=== PATIENT | male | born 1970 | race Caucasian/White ===

== ENCOUNTER 2016-12-18 21:02 | Inpatient (IN) | payer OTHER ==
[~2016-12-18] VITALS: Ht 177.8 cm; Wt 102.1 kg
--- NOTE | ~2016-12-18 | HC ---
[facility] [place] [address] CONSULTATION Name: VINCENZOSANCHEZ GNI Room #: 449-I ADM IN M.R.#: [id number] Admission: 12/18/16 Attend Phys: Gin Stafford DO Discharge: Date of : 66 Report #: [id number] THIS REPORT FOR: //name// CC: Gin Brannon DATE OF SERVICE: 12/20/2016 ATTENDING PHYSICIAN: Dr. Gomez. REASON FOR CONSULTATION: Scrotal cellulitis, perineal drainage. HISTORY OF PRESENT ILLNESS: The patient is a 46-year-old white man who was well until Sunday when he started developed pain and swelling of the scrotum and visited with a local emergency room, prescribed Bactrim and he did not improve. He is admitted to [facility] with fevers and a diagnosis of scrotal cellulitis with negative CT scan. Scrotal ultrasound for detection of pus pockets. He is on treatment with meropenem and Cleocin. Though he has defervesced, he continues to have significant enlarged scrotum with some pain. The patient's nurse reports the patient is having some drainage from the peritoneal area and will culture this area. The patient tells me he is not better. He is still having significant scrotal swelling and pain and pressure off and on persistently. DRUG ALLERGIES: PENICILLIN (the patient's father and mother had penicillin allergy). The patient has never experienced a reaction to penicillin, since he had not used this drug. MEDICATIONS: The patient is on treatment with meropenem 1 gram IV every 8 hours, Cleocin 600 mg IV every 8 hours, docosahexaenoic acid 3000 mg daily, enoxaparin 40 mg subQ at bedtime, famotidine 20 mg at bedtime, oxycodone/acetaminophen 1 tablet q. 4h. p.r.n., atorvastatin 40 mg daily, nicotine 1 mg patch daily, acetaminophen p.r.n., ondansetron p.r.n. PAST MEDICAL HISTORY: Hypertension. History of atrial fibrillation, requiring ablation. Bilateral inguinal hernia repair many years ago. Dyslipidemia. SOCIAL HISTORY: Single, construction work. . No significant alcohol. REVIEW OF SYSTEMS: Noncontributory besides what has been stated above. PHYSICAL EXAMINATION: GENERAL: Overweight white man, not toxic looking. VITAL SIGNS: Temperature 103.3 yesterday and down to 100.1 today, pulse 95, respirations 20, BP 143/83. HEENMT: Head normocephalic, atraumatic. Pupils reactive. Mouth: No thrush or [facility] [address] [place] [address] CONSULTATION Name: SANCHEZ LOYA GIN Room #: 449-I [facility] IN ..#: [id number] Admission: 12/18/16 Attend Phys: Gin Stafford DO Discharge: Date of : 66 Report #: [id number] hairy leukoplakia. NECK: Supple. LUNGS: Clear to auscultation. HEART: S1, S2. No gallop or murmur. ABDOMEN: Obese, soft, no masses or megaly, no abnormal tenderness. GENITALIA: The scrotum very large and reddened with thickened raised spermatic cord. I detect no obvious masses. I could not feel the testicles because of swelling. On the left lateral decubitus, the patient has perineal sinus tract on the right side and it is draining clear fluid. We will take him culture of this lesion. RECTAL: Deferred. EXTREMITIES: There is some pretibial edema, right leg. No calf tenderness, question mild effusion of right knee joint. LABORATORY DATA: The patient had the following abnormals, sodium 133, 132, BUN 21, creatinine 1.7 on admission, down to normal now. Glucose 114, calcium 8.4, possible reflecting hypoalbuminemia. On admission, the white blood cell count is 18,600, hemoglobin 13.1 g/dL and platelets 105,000 and white blood cell count differential revealed 80% neutrophils. Repeat CBC today revealed the white blood cell count has come down to 15,700, hemoglobin 12.5 g/dL and platelets remain decreased at 104,000. Blood cultures negative. RADIOLOGY EVALUATION: CT scan of the pelvic area revealed significant scrotal swelling and edema of the cord and some reacted lymphadenitis. No obvious abscess. ASSESSMENT: 1. Scrotal cellulitis and sinus tract, right perineal area. 2. Leukocytosis, improving. 3. Fever,? improving. 4. Thrombocytopenia, question etiology. 5. "PENICILLIN allergy" on account of family history. 6. Right pretibial edema, question etiology. 7. Right knee pain. 8. Hypertension. 9. History of atrial fibrillation status post ablation. 10. Inguinal hernia repair. SUGGESTIONS: Recommend culture sinus tract. MRSA screen nasal. Continue meropenem. Zyvox 600 mg IV every 12 hours. Ultrasound venous circulation of the right leg. Urology consultation. Serum uric acid. We will discuss situation with Dr. Gomez [facility] [address] [place] [address] CONSULTATION Name: SANCHEZ LOYA Room #: 449-I ADM IN M.R.#: [id number] Admission: 12/18/16 Attend Phys: Gin Stafford DO Discharge: Date of : 66 Report #: [id number] Gomez, thank you for requesting my suggestions. <ELECTRONICALLY SIGNED> By: Jonathon Lim MD 12/21/16 1005 1316 0151 Jonathon Lim MD /nt
--- NOTE | ~2016-12-18 | EKG ---
[address] [address] ELECTROCARDIOGRAM REPORT Name: SANCHEZ LOYA Room #: 544-P ADM IN M.R.#: [id number] Admission: 12/18/16 Attend Phys: Sekou Stafford DO Discharge: Date of : 66 Report #: [id number] THIS REPORT FOR: //name// [facility] Test Date: 2016-12-20 Test Time: 17:50:02 Pat Name: SANCHEZ LOYA Department: Room: 544 P Gender: M [employer]: Alexa HAYDEN : 1970 Requested By: Thanh Mendez Order Number: [id number] MD: Gene Lim Measurements Intervals [place] Rate: 141 P: 140 SD: 81 QRS: 39 QRSD: 99 T: -10 QT: 327 QTc: 501 Interpretive Statements Atrial flutter, typical with RVR. No previous ECG available for comparison Electronically Signed On 12-20-2016 18:52:37 CDT by Gene Lim [email or web address] <ELECTRONICALLY SIGNED> By: Gene Lim MD 12/20/16 5922 D: 05/1749 49 Gene Lim MD /HILDA
--- NOTE | ~2016-12-18 | 2DMMODE ---
[facility] [employer] [address] 2 D/M-MODE ECHOCARDIOGRAM Name: SANCHEZ LOYA Room #: 449-I ADM IN ..#: [id number] Admission: 12/18/16 Attend Phys: Gin Stafford, Discharge: Date of : 66 Date of Service: 12/21/16 1238 Report #: [id number] THIS REPORT FOR: //name// APPROVED REPORT Study performed: 12/21/2016 09:04:34 EXAM: Comprehensive 2D, Doppler, and color-flow Echocardiogram Patient Location: Bedside Room #: [facility] Status: routine Other Information Study Quality: Adequate Indications Atrial Fibrillation Hypertension/HDD 2D Dimensions RVDd: 42.81 mm LVEF(%): 61.87 (>50%) IVSd: 10.23 (7-11mm) LVOT Diam: 22.43 (18-24mm) LVDd: 53.28 mm PWd: 10.49 (7-11mm) Ascending Ao: 36.96 (22-36mm) LVDs: 35.39 (25-40mm) Aortic Root: 35.25 mm Zhang's LVEF: 61.87 % Volumes Left Atrial Volume (Systole) Single Plane 4CH: 84.44 mL Aortic Valve AoV Peak Marvin.: 1.64 m/s AO Peak Gr.: 10.90 mmHg LVOT Max P.97 mmHg LVOT Max V: 1.41 m/s GABO Vmax: 3.39 cm2 Mitral Valve MV Decel. Time: 153.90 ms MV E Max Marvin.: 1.32 m/s IVRT: 83.04 ms Pulmonary Valve PV Peak Marvin.: 1.14 m/s PV Peak Gr.: 5.23 mmHg [facility] [address] [address] 2 D/M-MODE ECHOCARDIOGRAM Name: VINCENZOSANCHEZ GREENFIELD Room #: 449-I [facility] IN [facility].#: [id number] Admission: 12/18/16 Attend Phys: Gin Stafford, Discharge: Date of : 66 Date of Service: 12/21/16 1238 Report #: [id number] Tricuspid Valve TR Peak Marvin.: 2.16 m/s RAP Estimate: 5.00 mmHg TR Peak Gr.: 18.92 mmHg RVSP: 24.00 mmHg Left Ventricle The left ventricle is normal size. There is normal LV segmental wall motion. Mild concentric left ventricular hypertrophy. The left ventricular systolic function is normal. The left ventricular ejection fraction is within the normal range. LVEF is 55-60%. This study is not technically sufficient to allow evaluation of the LV diastolic function due to atrial fibrillation. Right Ventricle The right ventricle is normal size. The right ventricular systolic function is normal. Atria Left atrium is dilated. Right atrium is dilated. Aortic Valve The aortic valve is normal in structure. No aortic regurgitation is present. There is no aortic valvular stenosis. Mitral Valve The mitral valve is normal in structure. Trace mitral regurgitation. No evidence of mitral valve stenosis. Tricuspid Valve The tricuspid valve is normal in structure. There is trace tricuspid regurgitation. The right atrial pressure is estimated at 5 mmHg with an estimated PAP 24 mmHg. Pulmonic Valve The pulmonary valve is normal in structure. There is no pulmonic valvular regurgitation. Great Vessels The aortic root is normal in size. The ascending aorta is normal in size. IVC is normal in size and collapses >50% with inspiration. Pericardium There is no pericardial effusion. <Conclusion> [facility] [address] [place] [address] 2 D/M-MODE ECHOCARDIOGRAM Name: VINCENZOSANCHEZ GIN Room #: 449-I [facility] IN ..#: [id number] Admission: 12/18/16 Attend Phys: Gin Stafford, Discharge: Date of : 66 Date of Service: 12/21/16 1238 Report #: [id number] The left ventricle is normal size. LVEF is 55-60%. Left atrium is dilated. Right atrium is dilated. The aortic valve is normal in structure. The mitral valve is normal in structure. Trace mitral regurgitation. The tricuspid valve is normal in structure. There is trace tricuspid regurgitation. The right atrial pressure is estimated at 5 mmHg with an estimated PAP 24 mmHg. The pulmonary valve is normal in structure. <ELECTRONICALLY SIGNED> By: Brandon Hackett MD 12/21/16 1238 1238 1238 Brandon Hackett MD /INF
[2016-12-18 21:04] VITALS: BP 101/63
[2016-12-18] MEDS ORDERED: NORVASC5 MG PO (21:10)
[2016-12-18] MEDS ORDERED: TOPROL XL25 MG PO (21:10)
[2016-12-18] MEDS ORDERED: LOSARTAN POTASS25 MG PO (21:11)
[2016-12-18] MEDS ORDERED: HYDROCODONE-AP1 EAC6 PO (21:11)
[2016-12-18] MEDS ORDERED: BACTRIM DS TAB1 EACH PO (21:11)
[2016-12-18] MEDS ORDERED: IBUPROFEN 800800 M1 PO (21:11)
[2016-12-18] MEDS ORDERED: ATORVASTATIN CA40 MG PO (21:11)
[2016-12-18] MEDS ORDERED: PEPCID20 MG PO (21:12)
[2016-12-18] MEDS ORDERED: [UNRECOGNIZED DRUG - OTHER] (21:12)
[2016-12-18] MEDS ORDERED: FISH OIL 1,001000 M2 PO (21:12)
[2016-12-18 21:28] LABS: HEMATOCRIT 39.1 % (42.0-52.0); HEMOGLOBIN 13.5 gm/dL (14.0-18.0); MANUAL DIFF YES; MCHC 34.6 g/dL (28.0-37.0); MCV 95.4 fL (80.0-100.0); PLATELET COUNT 105 thou/uL (150-400); RBC 4.09 mil/uL (4.50-6.00); RDW 13.8 % (10.5-14.5); WBC 18.6 thou/uL (4.0-11.0)
[2016-12-18 21:37] LABS: CALCIUM 8.9 mg/dL (8.5-10.1); CREATININE 1.7 mg/dL (0.7-1.3)
[2016-12-18 21:50] LABS: ABSOLUTE NEUTROPHILS 15.8 thou/uL (1.4-8.2); TOTAL CELL COUNT 100
[2016-12-18 21:51] LABS: ANISOCYTOSIS 1+; POLYCHROMASIA OCCASIONAL
[2016-12-19] VITALS (7 sets, daily range): BP systolic 100–145; BP diastolic 57–71
[2016-12-19 12:17] LABS: CALCIUM 8.3 mg/dL (8.5-10.1); CREATININE 1.3 mg/dL (0.7-1.3); POTASSIUM 3.7 mmol/L (3.5-5.1)
[2016-12-20 04:02] VITALS: BP 146/71
[2016-12-20 05:25] LABS: HEMATOCRIT 35.8 % (42.0-52.0); HEMOGLOBIN 12.5 gm/dL (14.0-18.0); MCH 32.9 pg (26.0-34.0); MCHC 34.9 g/dL (28.0-37.0); MCV 94.3 fL (80.0-100.0); PLATELET COUNT 104 thou/uL (150-400); RBC 3.79 mil/uL (4.50-6.00); RDW 13.6 % (10.5-14.5); WBC 15.7 thou/uL (4.0-11.0)
[2016-12-20 05:29] LABS: MANUAL DIFF YES
[2016-12-20 05:47] LABS: CALCIUM 8.4 mg/dL (8.5-10.1); CREATININE 1.2 mg/dL (0.7-1.3)
[2016-12-20 08:14] VITALS: BP 143/83
[2016-12-20 08:38] LABS: ABSOLUTE NEUTROPHILS 14.4 thou/uL (1.4-8.2); TOTAL CELL COUNT 100
[2016-12-20 08:39] LABS: ANISOCYTOSIS SLIGHT
[2016-12-20 15:16] LABS: URINE BILIRUBIN NEGATIVE (Negative); URINE BLOOD 1+ (Negative); URINE COLOR YELLOW; URINE GLUCOSE-RANDOM* NEGATIVE (Negative); URINE KETONES TRACE (Negative); URINE LEUKOCYTES-REFLEX NEGATIVE (Negative); URINE PROTEIN (DIPSTICK) 1+ (Negative); URINE SPECIFIC GRAVITY 1.015 (1.003-1.035)
[2016-12-20 15:23] LABS: URINE RBC 0-2 Rare /HPF (0-2); URINE WBC-REFLEX 0-5 Rare /HPF (0-5)
[2016-12-20 15:24] LABS: CASTS None Seen /LPF (None Seen); CRYSTALS None Seen /LPF (None Seen); SQUAMOUS None Seen /LPF (0-3)
[2016-12-20 16:00] VITALS: BP 120/68
[2016-12-20 20:48] VITALS: BP 120/83
[2016-12-21 00:02] VITALS: BP 119/83
[2016-12-21 04:09] VITALS: BP 128/76
[2016-12-21 06:05] LABS: HEMATOCRIT 35.3 % (42.0-52.0); HEMOGLOBIN 12.3 gm/dL (14.0-18.0); MCH 32.2 pg (26.0-34.0); MCHC 34.8 g/dL (28.0-37.0); MCV 92.7 fL (80.0-100.0); RBC 3.81 mil/uL (4.50-6.00); RDW 13.1 % (10.5-14.5); WBC 14.9 thou/uL (4.0-11.0)
[2016-12-21 06:12] LABS: CALCIUM 7.8 mg/dL (8.5-10.1); CREATININE 0.8 mg/dL (0.7-1.3); POTASSIUM 3.5 mmol/L (3.5-5.1)
[2016-12-21 08:55] VITALS: BP 116/71
[2016-12-21 12:57] VITALS: BP 95/61
[2016-12-21 16:35] VITALS: BP 125/63
[2016-12-21 19:20] VITALS: BP 105/63
[2016-12-22] VITALS: BP 109/69
[2016-12-22 04:00] VITALS: BP 115/79
[2016-12-22 07:27] VITALS: BP 149/73
[2016-12-22 11:16] VITALS: BP 113/71
[2016-12-22 15:22] VITALS: BP 110/65
[2016-12-22 21:31] VITALS: BP 114/68
[2016-12-23 03:17] VITALS: BP 113/74
[2016-12-23 05:38] LABS: HEMATOCRIT 34.2 % (42.0-52.0); MCHC 35.1 g/dL (28.0-37.0); MCV 93.9 fL (80.0-100.0); RBC 3.64 mil/uL (4.50-6.00); RDW 13.5 % (10.5-14.5); WBC 10.6 thou/uL (4.0-11.0)
[2016-12-23 05:47] LABS: CALCIUM 8.3 mg/dL (8.5-10.1); CREATININE 0.7 mg/dL (0.7-1.3); POTASSIUM 3.8 mmol/L (3.5-5.1)
[2016-12-23 21:07] VITALS: BP 129/65
[2016-12-24 04:00] VITALS: BP 130/81
[2016-12-24 08:35] VITALS: BP 135/78
[2016-12-24 12:10] VITALS: BP 128/72
[2016-12-24 16:12] VITALS: BP 127/68
[2016-12-24 19:28] VITALS: BP 135/73
[2016-12-25 03:44] VITALS: BP 133/77
[2016-12-25 07:30] VITALS: BP 140/72
[2016-12-25 08:13] LABS: HEMATOCRIT 35.8 % (42.0-52.0); HEMOGLOBIN 12.6 gm/dL (14.0-18.0); MCH 32.4 pg (26.0-34.0); MCHC 35.1 g/dL (28.0-37.0); MCV 92.2 fL (80.0-100.0); RBC 3.89 mil/uL (4.50-6.00); RDW 13.2 % (10.5-14.5); WBC 10.6 thou/uL (4.0-11.0)
[2016-12-25 08:25] LABS: CALCIUM 8.5 mg/dL (8.5-10.1); CREATININE 0.7 mg/dL (0.7-1.3); POTASSIUM 3.8 mmol/L (3.5-5.1)
[2016-12-25 12:37] VITALS: BP 114/66
[2016-12-25 16:29] VITALS: BP 118/69
[2016-12-25 19:15] VITALS: BP 129/75
[2016-12-26 03:15] VITALS: BP 134/77
[2016-12-26 04:57] LABS: HEMATOCRIT 36.3 % (42.0-52.0); HEMOGLOBIN 12.6 gm/dL (14.0-18.0); MCH 32.1 pg (26.0-34.0); MCHC 34.6 g/dL (28.0-37.0); MCV 92.7 fL (80.0-100.0); RBC 3.91 mil/uL (4.50-6.00); RDW 13.3 % (10.5-14.5); WBC 10.1 thou/uL (4.0-11.0)
[2016-12-26 05:20] LABS: CALCIUM 8.2 mg/dL (8.5-10.1); CREATININE 0.7 mg/dL (0.7-1.3); POTASSIUM 3.7 mmol/L (3.5-5.1)
[2016-12-26 07:13] VITALS: BP 130/78
[2016-12-26 12:00] VITALS: BP 104/66
[2016-12-26 16:35] VITALS: BP 116/72
[2016-12-26 20:17] VITALS: BP 131/82
[2016-12-27 04:00] VITALS: BP 129/80
[2016-12-27 05:57] LABS: HEMATOCRIT 35.6 % (42.0-52.0); HEMOGLOBIN 12.5 gm/dL (14.0-18.0); MCH 32.7 pg (26.0-34.0); MCHC 35.2 g/dL (28.0-37.0); MCV 92.9 fL (80.0-100.0); RBC 3.83 mil/uL (4.50-6.00); RDW 13.3 % (10.5-14.5); WBC 9.4 thou/uL (4.0-11.0)
[2016-12-27 06:13] LABS: CALCIUM 8.4 mg/dL (8.5-10.1); CREATININE 0.8 mg/dL (0.7-1.3); POTASSIUM 3.7 mmol/L (3.5-5.1)
[2016-12-27 07:12] VITALS: BP 124/81
[2016-12-27 12:07] VITALS: BP 107/67
[2016-12-27 15:06] LABS: CHLAMYDIA TRACHOMATIS-PCR Negative (Negative)
[2016-12-27] MEDS ORDERED: DOXYCYCLINE 10100 MG PO (15:53)
[2016-12-27] MEDS ORDERED: INVANZ1 GM IJ (15:54)
[2016-12-27] MEDS ORDERED: DIGOXIN250 MCG PO (15:54)
[2016-12-27] MEDS ORDERED: PRADAXA150 MG PO (15:55)
[2016-12-27] MEDS ORDERED: LOPRESSOR100 M1 PO (15:55)
[2016-12-27] MEDS ORDERED: CARDIZEM CD 18180 M3 PO (15:56)
[2016-12-27] MEDS ORDERED: PERCOCET PO (15:56)
[2016-12-27 16:02] VITALS: BP 107/67; BP 115/74
[2016-12-27 16:32] VITALS: BP 107/67
== END 2016-12-27 18:10 | disposition home health service (06) | DRG 872 ==
LOC: ER 21:02 → 5S 23:37 → EROBS 23:37 → 4W 23:37 → 5S 12-19 00:17 → 4W 12-20 19:59
PROVIDERS: Emergency Medicine; Family Medicine; Internal Medicine Infectious Disease; Specialist
PROC: B548ZZA Ultrasonography of Superior Vena Cava, Guidance (ICD-10-PCS; principal; 2016-12-27)
PROC: 02HV33Z Insertion of Infusion Device into Superior Vena Cava, Percutaneous Approach (ICD-10-PCS; principal; 2016-12-27)
DX: A41.9 Sepsis, unspecified organism (principal); N17.9 Acute kidney failure, unspecified; L03.315 Cellulitis of perineum; I48.92 Unspecified atrial flutter; F17.210 Nicotine dependence, cigarettes, uncomplicated; N49.2 Inflammatory disorders of scrotum; I10 Essential (primary) hypertension; E78.5 Hyperlipidemia, unspecified; D69.6 Thrombocytopenia, unspecified; I48.0 Paroxysmal atrial fibrillation; Z82.49 Family history of ischemic heart disease and other diseases of the circulatory system; Z71.6 Tobacco abuse counseling; Z82.5 Family history of asthma and other chronic lower respiratory diseases; Z79.899 Other long term (current) drug therapy; Z88.0 Allergy status to penicillin
CPT/HCPCS: 10045; 10086; 27000